=== PATIENT | male | born 1950 | race Two or more races ===

== ENCOUNTER 2022-07-28 21:13 | Emergency (ER) | payer OTHER ==
[~2022-07-28] VITALS: Ht 170.2 cm; Wt 90.0 kg
[2022-07-28] MEDS ORDERED: SODIUM BICARBONATE 8.4% INJ 50ML SYRINGE IV ONE (21:14)
[2022-07-28] MEDS ORDERED: CALCIUM CHLOR(10%) 100MG/ML 10ML SYRINGE IV ONE (21:14)
[2022-07-28] MEDS ORDERED: EPINEPHrine HCL 1 MG/10 ML SYRG IV ONE (21:14)
[2022-07-28] MEDS ORDERED: EPINEPHrine HCL 250 ML IV ONE (21:29)
[2022-07-28] MEDS: EPINEPHrine HCL 250 ML IV SCH (21:30)
[2022-07-28] MEDS ORDERED: VASOPRESSIN 20 UNIT/ML ONE (21:43)
[2022-07-28] MEDS ORDERED: VASOPRESSIN 20 UNITS in SODIUM CHL 0.9% 99 ML IV SCH (21:45)
[2022-07-28] MEDS ORDERED: ETOMIDATE (2MG/ML) 20ML VIAL IV ONE (21:45)
[2022-07-28] MEDS ORDERED: ROCURONIUM 10MG/ML 10ML VIAL IV ONE (21:45)
[2022-07-28] MEDS ORDERED: NOREPINEPHRINE 8 MG/250ML KIT 250 ML IV ONE (21:52)
[2022-07-28] MEDS ORDERED: NOREPINEPHRINE 8 MG/250ML KIT 250 ML IV SCH (22:00)
[2022-07-28] MEDS ORDERED: IOHEXOL 350 MG/ML 100ML IJ ONE (22:15)
[2022-07-28] MEDS ORDERED: PHENYLEPHRINE IV 250 ML IV SCH (22:30)
[2022-07-28 22:33] LABS: Basophils # (auto) 0.1 10 ^3/uL (0-0.2); Basophils % (auto) 0.4 % (0.0-2.0); Eosinophils # (auto) 0.1 10 ^3/uL (0-0.8)
[2022-07-28 22:34] LABS: Albumin 3.6 g/dL (3.4-5.0); Magnesium 2.5 mg/dL (1.6-2.6); Potassium 3.6 mmol/L (3.5-5.1)
[2022-07-28 22:34] LABS: Alcohol, Urine < 3.0 mg/dL (0-10); Amphetamine Screen, Urine NEGATIVE (NEGATIVE); Barbiturate Scree,Urine NEGATIVE (NEGATIVE); Benzodiazephine Screen, Urine NEGATIVE (NEGATIVE); Cannabinoid Screen, Urine NEGATIVE (NEGATIVE); Cocaine Screen, Urine NEGATIVE (NEGATIVE); Opiate Scree,Urine NEGATIVE (NEGATIVE); Phencyclidine Screen, Urine NEGATIVE (NEGATIVE)
[2022-07-28 22:37] LABS: Lactic Acid w/Reflex 8.9 mmol/L (0.4-2.0)
[2022-07-28 22:38] LABS: Bilirubin, Total 0.4 mg/dL (0.2-1.0); Total Protein 7.3 g/dL (6.4-8.2)
[2022-07-28 22:45] LABS: Eosinophils % (auto) 0.7 % (0.0-7.0); Lymphocytes # (auto) 6.7 10 ^3/uL (0.4-5.4); Lymphocytes % (auto) 51.5 % (10.0-50.0); Mean Corpuscular Hgb Conc. 30.9 g/dL (32.0-36.0); Mean Corpuscular Volume 93.7 fL (80.0-100.0); Monocytes # (auto) 1.1 10 ^3/uL (0-1.3); Monocytes % (auto) 8.2 % (0.0-12.0); Neutrophils # (auto) 5.1 10 ^3/uL (1.6-8.6); Neutrophils % (auto) 39.2 % (37.0-80.0); Nucleated Red Blood Cells % 0.3 %; Red Blood Cells 4.48 10^6/uL (4.5-5.90); Red Cell Distribution Width 15.2 % (11.8-14.3)
[2022-07-28 22:53] LABS: Urine Bacteria FEW /hpf (None Seen); Urine Blood TRACE /uL (Negative); Urine Specific Gravity 1.022 (1.001-1.035); Urine WBC 1 /hpf (0 - 3)
[2022-07-28 23:02] LABS: INR 1.06 (0.9-1.15); Partial Thromboplastin Time < 20.0 SEC (24.5-34.5)
[2022-07-28] MEDS ORDERED: SODIUM CHLORIDE 0.9% 2,700 ML IV ONE (23:15)
[2022-07-29 00:13] VITALS: BP 110/67
[2022-07-29] MEDS: EPINEPHrine HCL 250 ML IV SCH (00:19)
== END 2022-07-29 00:47 | disposition short-term general hospital (02) ==
LOC: EDSEX 21:13 → ER 21:13 → EDBD 21:13 → ER 07-29 00:47
DX: I46.9 Cardiac arrest, cause unspecified (principal); I61.4 Nontraumatic intracerebral hemorrhage in cerebellum; G91.1 Obstructive hydrocephalus; I10 Essential (primary) hypertension; E11.9 Type 2 diabetes mellitus without complications
CPT/HCPCS: 31500; 36415; 36556; 70450; 71045; 71260; 74177; 80053; 80307; 81001; 82140; 82962; 83605; 83735; 83880; 84484; 85025; 85379; 85610; 85730; 86850; 86900; 86901; 87040; 87070; 87077; 87205; 92950; 93005; 99152; 99291; 99292; J0171; J2370; J7030; Q9967; 94002; 96360